=== PATIENT | female | born 1950 | race Caucasian/White ===

== ENCOUNTER 2017-09-14 16:34 | Observation (INO) | payer MEDICARE ==
[~2017-09-14] VITALS: Ht 157.5 cm; Wt 92.0 kg
--- NOTE | ~2017-09-14 | HEMODYNAMI ---
PATIENT:ANGELLA DINERO MEDICAL RECORD: [id number] : 48 [facility] [id number] ADMISSION DATE: 09/14/17 Generatedon:09/15/201716:18 Patient name: ANGELLA DINERO Patient #: [id number] SSN: : 1950 Date of study: 09/15/2017 Page: Of Hemodynamic Procedure Report Patient Data Patient Demographics Procedure consent was obtained First Name: ANGELLA Gender: Female Last Name: ROSETTE : 1950 [facility] Initial: L Age: 67 year(s) Patient #: [id number] Race: Unknown Additional ID: [id number] Contact details Address: [address] [place] [address] State: [place]: [facility] [place] Zip code: [address] Past Medical History Allergies: No known allergies Admission Admission Data Admission Date: 09/14/2017 Admission Time: 17:18 Room #: D.2118 Procedure Procedure Types Cath Procedure Diagnostic Procedure LHC LHC w/Coronaries Procedure Description Procedure Date Procedure Date: 09/15/2017 Procedure Start Time: 16:07 Procedure End Time: 16:14 Procedure Staff Name Function Aida Calderon RT Monitor Ibrahima Mitchell RN Nurse Jp Smith MD Performing Physician Anjel Crews RT Scrub Genevieve Jimenez RT Monitor Procedure Data Cath Procedure Fluoroscopy Diagnostic fluoroscopy Total fluoroscopy Time: 2 time: 2 min min Diagnostic fluoroscopy Total fluoroscopy dose: 513 dose: 513 mGy mGy Contrast Material Contrast Material Type Amount (ml) Isovue 300 61 Entry Location Entry Primary Successful Side Size Upsize Upsize Entry Closure Antunez ccessful Closure Location (Fr) 1 (Fr) 2 (Fr) Remarks Device Remarks Radial Right 6 Fr Mechanical artery Short Compression Estimated blood loss: 5 ml Diagnostic catheters Device Type Used For End Catheter Placement DIAGNOSTIC Gifford 110cm 5 Multi-vessel Fr catheter ([id number]) Angiography Procedure Complications No complications Procedure Medications Medication Administration Route Dosage Oxygen etCO2 Nasal cannula 2 l/min Heparin Flush Bag added to field 2 bags (1000units/500ml NS) 0.9% NaCl I.V. 100 ml/hr Radial Cocktail added to field 1 syringe (Verapomil 2mg/Nitro 400mcg/Heparin 1500units) Fentanyl I.V. 50 mcg Versed I.V. 1 mg Fentanyl I.V. 50 mcg Versed I.V. 1 mg Radial Cocktail I.A. 1 syringe (Verapomil 2mg/Nitro 400mcg/Heparin 1500units) Hemodynamics Rest Heart Rate: 91 (bpm) Pressure Samples Time Site Value (mmHg) Purpose Heart Use Rate(bpm) 16:08 LV 117/-5,12 Snapshot 97 16:09 LV 107/-4,5 Pullback 87 16:09 AO 82/56(64) Pullback 87 Gradients Valve Time Site 1 Site 2 Mean SEP/DFP Peak To Heart Use (mmHg) (sec/min) Peak Rate (mmHg) (bpm) Aortic 16:09 LV AO 11 19 25 87 107/-4,5 82/56(64) Calculations Valve P-P Mean Valve Index Valve Source Name Gradient Area Flow (cm2) Aortic 25 11 25 11 Snapshots Pre Cath Intra NCS Post Cath Vital Signs Time Heart Resp SPO2 etCO2 NIBP (mmHg) Rhythm Pain Sedation Rate (ipm) (%) (mmHg) Status Level (bpm) 15:54:26 92 16 94 29.2 139/87(117) NSR 0 (11) 10(A) , No pain 15:58:34 92 17 96 29.2 133/83(110) NSR 0 (11) 10(A) , No pain 16:02:46 89 16 95 29.9 139/79(104) NSR 0 (11) 10(A) , No pain 16:06:53 90 15 93 27.7 115/78(103) NSR 0 (11) 9(A) , No pain 16:10:59 93 16 96 29.9 88/54(73) NSR 0 (11) 9(A) , No pain 16:15:42 89 15 92 28.4 99/65(82) NSR 0 (11) 9(A) , No pain Medications Time Medication Route Dose Verified Delivered Reason Notes Effectiveness by by 16:04:00 Oxygen etCO2 2 l/min Jp Alexandra Per Nasal Luis Mitchell RN physician cannula 16:04:08 Heparin Flush added 2 bags Jp Ibrahima used for Bag to Luis Mitchell RN procedure (1000units/500ml field NS) 16:04:16 0.9% NaCl I.V. 100 Jp Ibrahima Per ml/hr Luis Mitchell RN physician 16:04:24 Radial Cocktail added 1 Jp Ibrahima used for (Verapomil to syringe Luis Mitchell RN procedure 2mg/Nitro field 400mcg/Hepari 16:04:34 Fentanyl I.V. 50 mcg Jp Ibrahima for sedation Luis Mitchell RN 16:04:41 Versed I.V. 1 mg Jp Ibrahima for sedation Luis Mitchell RN 16:07:18 Fentanyl I.V. 50 mcg Jp Ibrahima for sedation Luis Mitchell RN 16:07:22 Versed I.V. 1 mg Jp Ibrahima for sedation Luis Mitchell RN 16:09:32 Radial Cocktail I.A. 1 Jp Jp for (Verapomil syringe Luis Smith MD vasodilation 2mg/Nitro 400mcg/Hepari Procedure Log Time Note 15:30:41 Ibrahima Mitchell RN sent for patient. Start room use. 15:42:42 Time tracking: Regular hours (M-F 7:00 - 5:00) 15:42:46 Plan of Care:Hemodynamics will remain stable., Cardiac rhythm will remain stable., Comfort level will be maintained., Respiratory function will remain adequate., Patient/ family verbilizes understanding of procedure., Procedure tolerated without complication., Recovers from procedure without complications.. 15:43:20 Warm blankets applied, and eliana hugger turned on for patient comfort. 15:43:20 Patient received from PCU to CCL 2 Alert and oriented. Tansferred to table in Supine position. 15:43:21 Correct patient and procedure confirmed by team. 15:43:22 Signed procedure consent form obtained from patient. 15:43:23 ECG and BP/O2 sat monitors applied to patient. 15:43:24 Full Disclosure recording started 15:53:22 Vital chart was started 15:54:44 Rhythm: sinus rhythm 15:54:52 H&P Date Dictated: 09/15/2017 Within 30 days and on chart.. 15:54:54 Pre-op teaching completed and patient verbalized understanding. 15:54:54 Pre-procedure instructions explained to patient. 15:54:55 Family in patients room. 15:54:57 Patient NPO since Midnight. 15:55:05 Patient allergic to No known allergies 15:55:07 Is the patient allergic to Iodine/contrast media? No. 15:55:09 Is patient on blood thinner?No 15:55:11 Patient diabetic? No. 15:55:14 Previous problem with sedation/anesthesia? No ? 15:55:15 Snore? Yes 15:55:16 Sleep apnea? No 15:55:17 Deviated septum? No 15:55:18 Opens mouth fully? Yes 15:55:19 Sticks out tongue? Yes 15:55:20 Airway obstruction? No ? 15:55:22 Dentures? No ? 15:55:25 Pre procedure: right dorsailis pedis pulse 2+ Normal; easily identifiable; not easily obliterated 15:55:27 Modified Wesley's test Ulnar < 7 seconds 15:55:31 Patient pain scale 0/10 ?. 15:55:38 IV patent on arrival in left forearm with 0.9% NaCl at O. 15:55:41 Lab results completed and on chart. 15:55:45 Right Radial & Right Groin area was prepped with chlora-prep and draped in sterile fashion 15:55:46 Sharps counted by scrub and verified by R.N. 15:55:46 Alarms reviewed by R. N. 15:55:51 Use device set Radial Dx or PCI 15:55:52 ACIST Syringe ([id number]) opened to sterile field. 15:55:53 Bag Decanter () opened to sterile field. 15:55:53 Medline Cath Pack ([id number]) opened to sterile field. 15:55:54 ACIST Hand Control (89154) opened to sterile field. 15:55:54 DIAGNOSTIC WIRE .035 260cm J wire (226113) opened to sterile field. 15:55:55 ACIST Manifold (53043) opened to sterile field. 15:55:56 MBrace Wrist Support ([id number]) opened to sterile field. 15:55:56 Tegaderm 4 x 4 (1626W) opened to sterile field. 15:55:58 SHEATH 6Fr Prelude Radial ([id number]) opened to sterile field. 16:00:04 Baseline sample Acquired. 16:01:47 Final Timeout: patient, procedure, and site verified with staff and physician. All members of the team are in agreement. 16:01:50 Right Radial site verified by team. 16:01:52 Physical assessment completed. ASA score P 2 - A patient with mild systemic disease as per Jp Smith MD. 16:01:55 Sedation plan: IV Moderate Sedation Medication:Versed, Fentanyl 16:04:00 Oxygen 2 l/min etCO2 Nasal cannula was administered by Ibrahima Mitchell RN; Per physician; 16:04:08 Heparin Flush Bag (1000units/500ml NS) 2 bags added to field was administered by Ibrahima Mitchell RN; used for procedure; 16:04:16 0.9% NaCl 100 ml/hr I.V. was administered by Ibrahima Mitchell RN; Per physician; 16:04:24 Radial Cocktail (Verapomil 2mg/Nitro 400mcg/Heparin 1500units) 1 syringe added to field was administered by Ibrahima Mitchell RN; used for procedure; 16:04:34 Fentanyl 50 mcg I.V. was administered by Ibrahima Mitchell RN; for sedation; 16:04:41 Versed 1 mg I.V. was administered by Ibrahima Mitchell RN; for sedation; 16::57 Procedure started. 16:07: Local anesthetic to right radial artery with Lidocaine 2% by Jp Smith MD.INITIAL ACCESS ONLY 16:07:07 A 6 Fr Short sheath was inserted into the Right Radial artery 16:07:10 Zero performed for pressure channel P1 16:07:18 Fentanyl 50 mcg I.V. was administered by Ibrahima Mitchell RN; for sedation; 16:07:22 Versed 1 mg I.V. was administered by Ibrahima Mitchell RN; for sedation; 16:08:22 A DIAGNOSTIC Gifford 110cm 5 Fr catheter ([id number]) was advanced over the wire and used for Multi-vessel Angiography. 16:09:01 LV hemodynamics recorded. 16:09:02 LV gram done using DSOUZA 16:09:06 Injector settings: Ml/sec: 5, Volume: 15, 16:09:14 EF : 60 % 16:09:32 Radial Cocktail (Verapomil 2mg/Nitro 400mcg/Heparin 1500units) 1 syringe I.A. was administered by Jp Smith MD; for vasodilation; 16:10:15 LCA angiography performed. 16:10:17 Injector settings: Ml/sec: 3, Volume: 6+, 16:11:07 RCA angiography performed. 16:11:10 Injector settings: Ml/sec: 3, Volume: 6, 16:13:04 Catheter removed. 16:13:05 TR BAND Standard ([id number]) opened to sterile field. 16:13:18 Sheath removed intact; hemostasis achieved with Mechanical Compression to the Right Radial artery. 16:13:41 Procedure ended.(Physican Out) 16:13:47 Fluoroscopy time 02.00 minutes. 16:13:59 Fluoroscopy dose: 513 mGy 16:13:59 Flurop Dose total: 513 16:14:03 Contrast amount:Isovue 300 61ml. 16:14:04 Sharps counted by scrub and verified by R.N. 16:14:07 TR band inflated with 10cc of air. 16:14:08 Insertion/operative site no bleeding no hematoma. 16:14:13 Post right radial artery:stable 16:14:14 Post Procedure Pulses reassessed and unchanged 16:14:17 Post procedure rhythm: unchanged. 16:14:20 Estimated blood loss: 5 ml 16:14:21 Post procedure instruction explained to patient.Patient verbalizes understanding. 16:14:22 Patient needs reinforcement of post procedure teaching. 16:14:31 Procedure and supply charges have been captured, reviewed, submitted and are correct. 16:14:35 Procedure Complication : No complications 16:14:37 See physician's report for complete and final results. 16:14:37 Vital chart was stopped 16:14:50 Report given to [facility]. 16:14:52 Patient transfered to [facility] with Stretcher. 16:14:54 Full Disclosure recording stopped 16:14:54 Procedure ended. 16:15:00 End room use (Document Last) Device Usage Item Name Manufacture Quantity Catalog Number Hospital Part Current M inimal Lot# / Charge Number Stock Stock Serial# Code ACIST Syringe Acist 1 01771 420494 540782 022870 2 0 (12400) [employer] Medline Cath Cardinal 1 [id number] 938249 73169 253129 5 Pack Health ([id number]) Bag Decanter Microtek 1 2001S 475153 98497 453593 5 (2001S) [employer] DIAGNOSTIC WIRE [facility] 1 875030 022608 514457 119697 3 0 .035 260cm J wire (486664) ACIST Hand Acist 1 95217 666402 111300 013954 5 Control (04892) [employer] Inc ACIST Manifold Acist 1 06787 889710 248152 433166 5 (64300) [employer] Tegaderm 4 x 4 3M 1 1626W 906067 357927 894334 5 (1626W) MBrace Wrist Advanced 1 140-0250-00 357124 93754 493053 5 Support Vascular ([id number]) Dynamics SHEATH 6Fr Merit 1 [id number] 214877 169855 040108 5 Prelude Radial Medical ([id number]) DIAGNOSTIC Terumo 1 40-7000 114398 906658 336926 5 Gifford 110cm 5 Fr catheter (836224) TR BAND Terumo 1 [id number] 911021 290442 899721 4 0 Standard ([id number]) Signature Audit Magnolia Stage Time Signature Unsigned Intra-Procedure 09/15/2017 Genevieve Jimenez 4:18:47 PM RT(R) Signatures Monitor : Aida Signature : Yumiko RT Date : Time : Monitor : Genevieve Jimenez RT Signature : Date : Time : [facility] [address] [place] [address]
[2017-09-14] MEDS ORDERED: PRILOSEC PO (17:43)
[2017-09-14] MEDS ORDERED: CLARITIN-D1 TAB.SR1 PO (17:44)
[2017-09-14 18:42] VITALS: BP 134/74; Ht 157.5 cm; Wt 92.0 kg
[2017-09-14 18:56] LABS: BASOPHILS 0.5 % (0-2); EOSINOPHILS 3.8 % (0-7); HEMATOCRIT 39.6 % (36.0-48.0); HEMOGLOBIN 12.9 g/dL (12-16); IMMATURE GRANULOCYTES 0.3 % (0-5); LYMPHOCYTES 37.6 % (15-50); MCH 27.2 pg (26.0-34.0); MCHC 32.6 g/dL (31.0-37.0); MCV 83.5 fL (80.0-100.0); MEAN PLATELET VOLUME 9.5 fL (7.4-10.4); MONOCYTES 7.2 % (2-11); NEUTROPHILS 50.6 % (40-80); PLATELET COUNT 365 10x3/uL (130-400); RBC 4.74 10x6/uL (4.00-5.40); RDW 16.7 % (11.5-14.5); WBC 9.9 10x3/uL (4.8-10.8)
[2017-09-14 19:00] VITALS: BP 122/80
[2017-09-14 19:19] LABS: CALC OSMOLALITY 288 mosm/kg (275-300); CALCIUM 8.6 mg/dL (8.5-10.1); CARBON DIOXIDE 28.2 mmol/L (21.0-32.0); CHLORIDE - SERUM 107 mmol/L (98-107); CHOL - HDL RATIO 7.9 ratio (2.3-4.1); CHOLESTEROL, TOTAL 230 mg/dL (0-200); CKMB 1.5 U/L (0.0-3.6); CREATINE KINASE 161 UL (21-215); CREATININE - SERUM 1.1 mg/dL (0.6-1.3); GLUCOSE 101 mg/dL (74-106); HDL CHOLESTEROL 29 mg/dL (32-96); LDL CHOLESTEROL 170 mg/dL (0-100); LDL-HDL RATIO 5.9 ratio (1.5-3.5); POTASSIUM - SERUM 4.1 mmol/L (3.5-5.1); SODIUM 145 mmol/L (136-145); TRIGLYCERIDE 158 mg/dL (30-200); TROPONIN-I < 0.017 ng/mL (0.000-0.060); UREA NITROGEN 13 mg/dL (7-18); eGFR NON AFRICAN AMERICAN 52 mL/min (90-120)
[2017-09-15 00:26] VITALS: BP 128/63
[2017-09-15 01:39] LABS: CKMB 0.9 U/L (0.0-3.6); CREATINE KINASE 146 UL (21-215); TROPONIN-I < 0.017 ng/mL (0.000-0.060)
[2017-09-15 04:00] VITALS: BP 128/73
[2017-09-15 06:54] LABS: CKMB 1.1 U/L (0.0-3.6); CREATINE KINASE 165 UL (21-215); TROPONIN-I < 0.017 ng/mL (0.000-0.060)
[2017-09-15 07:10] LABS: ANION GAP 12.5 mmol/L (8-16); CALCIUM 8.5 mg/dL (8.5-10.1); CARBON DIOXIDE 26.3 mmol/L (21.0-32.0); CREATININE - SERUM 0.9 mg/dL (0.6-1.3); POTASSIUM - SERUM 3.8 mmol/L (3.5-5.1)
[2017-09-15 07:22] LABS: BASOPHILS 0.7 % (0-2); EOSINOPHILS 4.4 % (0-7); HEMATOCRIT 41.5 % (36.0-48.0); HEMOGLOBIN 13.3 g/dL (12-16); IMMATURE GRANULOCYTES 0.3 % (0-5); LYMPHOCYTES 44.1 % (15-50); MCH 26.8 pg (26.0-34.0); MCV 83.7 fL (80.0-100.0); MEAN PLATELET VOLUME 9.6 fL (7.4-10.4); NEUTROPHILS 43.5 % (40-80); PLATELET COUNT 366 10x3/uL (130-400); RBC 4.96 10x6/uL (4.00-5.40); RDW 16.9 % (11.5-14.5); WBC 9.7 10x3/uL (4.8-10.8)
[2017-09-15 09:25] VITALS: BP 111/80
[2017-09-15 12:22] VITALS: BP 120/73
[2017-09-15 16:46] VITALS: BP 125/76
[2017-09-15] MEDS ORDERED: PROTONIX40 MG PO (18:19)
[2017-09-15] MEDS ORDERED: ASPIRIN EC81 M1 PO (18:19)
== END 2017-09-15 19:43 | disposition home or self-care (01) ==
LOC: D.M2 16:34 → OBSVTIME 17:18 → D.M2 17:18
PROVIDERS: Family Medicine; Internal Medicine Cardiovascular Disease
DX: R07.89 Other chest pain (principal); Q24.5 Malformation of coronary vessels; K21.9 Gastro-esophageal reflux disease without esophagitis; E66.9 Obesity, unspecified; Z68.37 Body mass index [BMI] 37.0-37.9, adult; E78.5 Hyperlipidemia, unspecified; M19.90 Unspecified osteoarthritis, unspecified site

== ENCOUNTER 2018-09-24 09:00 | Outpatient (CLI) | payer OTHER ==
[2017-09-14 18:42] VITALS: BMI 37.4
[~2018-09-24 09:00] MED LIST: ASPIRIN EC81 M1 PO; CLARITIN-D1 TAB.SR1 PO; PRILOSEC PO; PROTONIX40 MG PO
== END 2018-09-24 10:00 | disposition home or self-care (01) ==
LOC: D.MAMMO 09:00
PROVIDERS: ATTEND Family Medicine
DX: Z12.31 Encounter for screening mammogram for malignant neoplasm of breast (principal)

== ENCOUNTER → 2020-08-01 08:05 | Outpatient (CLI) | payer OTHER ==
[2017-09-14 18:42] VITALS: BMI 37.4
== END | disposition home or self-care (01) ==
LOC: D.MRI 08:05
PROVIDERS: ATTEND Family Medicine
DX: M75.101 Unspecified rotator cuff tear or rupture of right shoulder, not specified as traumatic (principal)

== ENCOUNTER 2020-08-28 09:00 | Outpatient (CLI) | payer OTHER ==
[2017-09-14 18:42] VITALS: BMI 37.4
== END 2020-08-28 23:59 | disposition home or self-care (01) ==
LOC: D.MAMMO 09:00
PROVIDERS: ATTEND Family Medicine
DX: Z12.31 Encounter for screening mammogram for malignant neoplasm of breast (principal)